=== PATIENT | female | born 1930 | race Caucasian/White ===

== ENCOUNTER 2018-07-06 10:39 | Inpatient (IN) | payer MEDICARE, BC ==
[~2018-07-06] VITALS: Ht 154.9 cm; Wt 68.2 kg
[~2018-07-06 10:39] MED LIST: CALTRATE-600 W600 MG PO; CENTRUM SILVER1 TA1 PO; COZAAR 50MG50 MG/TAB PO; HCTZ 25MG TAB25 MG PO; KLOR-CON 1010 MEQ PO; LEVOXYL0.088 MG PO; LOPRESSOR 550 MG/TAB PO; NORCO 325 MG-7.1 TAB PO; PRILOSEC 20MG20 MG PO
[2018-07-06 11:21] LABS: HEMOGLOBIN 14.8 g/dl (12.5-16.0); MEAN CELL VOLUME 100 fl (80.0-100.0); MEAN CORPUSCULAR HEMOGLOBIN 34 pg (27.0-31.0); MEAN CORPUSCULAR HGB CONC 34 g/dl (33.0-37.0); MEAN PLATELET VOLUME 11.1 fl (7.4-10.4); PLATELET COUNT 286 K/mm3 (130-400); REDCELL DISTRIBUTION WIDTH-CV 11.8 % (11.5-14.5)
[2018-07-06 11:29] LABS: BAND 5 % (0-10); LYMPHOCYTE 7 % (20.0-51.0); METAMYELOCYTE 1 % (0-0); NEUTROPHILS 79 % (42.0-75.2); PLATELET ESTIMATE NORMAL (NORMAL)
[2018-07-06 11:31] LABS: ALBUMIN 3.8 gm/dL (3.5-5.0); CALCIUM 10.4 mg/dL (8.4-10.2); CREATININE, serum 0.85 mg/dL (0.52-1.25); POTASSIUM 3.8 mmol/L (3.4-5.0); TOTAL PROTEIN 7.6 gm/dL (6.4-8.2)
[2018-07-06 11:43] LABS: TROPONIN-I 0.026 ng/mL (0.000-0.034)
[2018-07-06 12:02] LABS: TSH w REFLEX 6.04 uIU/mL (0.465-4.680)
[2018-07-06 12:54] LABS: COLLECTION METHOD CATHETER
[2018-07-06 13:02] LABS: MUCOUS Present /lpf; PH 5 (5-8); URINE APPEARANCE Hazy; URINE BACTERIA Rare /hpf; URINE BILIRUBIN Negative (NEGATIVE); URINE BLOOD 1+ (NEGATIVE); URINE COLOR Yellow; URINE GLUCOSE Negative (NEGATIVE); URINE KETONE 1+ (NEGATIVE); URINE LEUKOCYTE ESTERASE Trace (NEGATIVE); URINE NITRATE Negative (NEGATIVE); URINE PROTEIN(semi-quant) 2+ (NEGATIVE); URINE UROBILINOGEN Negative (NEGATIVE)
[2018-07-06] MEDS ORDERED: NORVASC 5MG5 MG/TAB PO (14:04)
[2018-07-06] MEDS ORDERED: COLACE 100100 MG/CAP PO (14:06)
[2018-07-06] MEDS ORDERED: FLORAJEN A20 Billion (14:07)
[2018-07-06 19:55] VITALS: BP 116/71; PULSE 65; TEMP 97.6
[2018-07-06 23:49] VITALS: BP 125/57; PULSE 103; TEMP 97
[2018-07-07] VITALS (8 sets, daily range): BP systolic 111–134; BP diastolic 56–90; PULSE 59–105; TEMP 97.8–98.2
[2018-07-07 06:59] LABS: BASO % 0.2 % (0.0-2.0); GRAN % 63.5 % (42.2-75.2); HEMATOCRIT 40.4 % (37.0-47.0); HEMOGLOBIN 13.7 g/dl (12.5-16.0); LYMPH # 2.1 (1.2-3.4); LYMPH % 22.1 % (20.0-51.0); MEAN CELL VOLUME 102 fl (80.0-100.0); MEAN CORPUSCULAR HEMOGLOBIN 34 pg (27.0-31.0); MEAN CORPUSCULAR HGB CONC 34 g/dl (33.0-37.0); MEAN PLATELET VOLUME 11.4 fl (7.4-10.4); MONO # 1.3 (0.1-0.6); PLATELET COUNT 243 K/mm3 (130-400); RED BLOOD COUNT 3.98 M/mm3 (4.10-5.30); REDCELL DISTRIBUTION WIDTH-CV 11.9 % (11.5-14.5)
[2018-07-07 07:11] LABS: CALCIUM 8.9 mg/dL (8.4-10.2); CREATININE, serum 0.9 mg/dL (0.52-1.25); POTASSIUM 3.5 mmol/L (3.4-5.0)
[2018-07-07 07:27] LABS: CHOLESTEROL RISK RATIO 3.7
== END 2018-07-07 13:23 | disposition short-term general hospital (02) | DRG 392 ==
LOC: COL.ER 10:39 → MEDICAL 12:44
PROVIDERS: Emergency Medicine; Internal Medicine Gastroenterology; Physician Assistant
PROC: 0DJ08ZZ Inspection of Upper Intestinal Tract, Via Natural or Artificial Opening Endoscopic (ICD-10-PCS; principal; 2018-07-07 09:45)
DX: K44.0 Diaphragmatic hernia with obstruction, without gangrene (principal); N39.0 Urinary tract infection, site not specified; I48.1 Persistent atrial fibrillation; I10 Essential (primary) hypertension; K21.9 Gastro-esophageal reflux disease without esophagitis; E83.52 Hypercalcemia
CPT/HCPCS: 99223-AI; 99239; A4216; C9113; G8978-GP; G8979-GP; J0696; J1650; J2405; J7030; Q9967